=== PATIENT | female | born 1940 | race African-American/Black ===

== ENCOUNTER 2016-09-02 10:09 | Emergency (ER) | payer MEDICARE ==
[~2016-09-02] VITALS: Ht 167.6 cm; Wt 79.1 kg
[~2016-09-02 10:09] MED LIST: AMLO10TA2 PO; ASPI-621 PO; ASPI-650 PO; IRON SULFATE PO; LATA2.5D2 OP; LEVO100T5 PO; MECL-76 PO; ROSU20TA PO
[2016-09-02 11:47] LABS: PATH.CAST-FLAG NOT PRESENT; SPERM-FLAG NOT PRESENT; SRC-FLAG NOT PRESENT; XTAL-FLAG NOT PRESENT; YLC-FLAG NOT PRESENT
[2016-09-02 12:23] VITALS: BP 152/80
== END 2016-09-02 13:03 | disposition home or self-care (01) ==
LOC: ED 12:09
DX: N76.0 Acute vaginitis (principal); I10 Essential (primary) hypertension; Z79.82 Long term (current) use of aspirin
CPT/HCPCS: 81001; 87210; 87491; 87591; 87808; 99284

== ENCOUNTER 2016-10-01 09:46 | Emergency (ER) | payer MEDICARE | END 2016-10-01 10:14 | disposition left against medical advice (07) | LOC: ED 10:00 ==

== ENCOUNTER 2016-10-01 13:46 | Emergency (ER) | payer MEDICARE ==
[~2016-10-01] VITALS: Ht 167.6 cm; Wt 79.7 kg
[2016-10-01] MEDS ORDERED: KETOROLAC 30 MG/1 ML IVPush ONE (14:30)
[2016-10-01] MEDS ORDERED: SODIUM CHLORIDE 0.9% 1,000ML IVBOLUS ONE (14:30)
[2016-10-01] MEDS ORDERED: SODIUM CHLORIDE FLUSH 10ML SYR IVF ONE (14:30)
[2016-10-01] MEDS ORDERED: KETOROLAC 30 MG/1 ML ONE (14:46)
[2016-10-01 15:18] LABS: BLOOD UREA NITROGEN 20 mg/dL (7-18)
[2016-10-01 16:48] VITALS: BP 168/80
== END 2016-10-01 16:52 | disposition home or self-care (01) ==
LOC: ED 15:34
DX: R51 Headache (principal); E78.00 Pure hypercholesterolemia, unspecified; E03.9 Hypothyroidism, unspecified; I10 Essential (primary) hypertension
CPT/HCPCS: 36415; 70450; 80048; 82040; 85025; 85651; 96361; 96374; 99285; J1885; J7030

== ENCOUNTER 2016-10-04 14:19 | Emergency (ER) | payer MEDICARE ==
[~2016-10-04] VITALS: Ht 167.6 cm; Wt 78.8 kg
[2016-10-04 15:13] LABS: HEMATOCRIT 42.7 % (34.6-47.8); HEMOGLOBIN 13.5 g/dL (11.7-16.4); WHITE BLOOD COUNT 7.8 x10^3/uL (3.4-10)
[2016-10-04 15:24] LABS: BLOOD UREA NITROGEN 19 mg/dL (7-18)
[2016-10-04 15:28] LABS: ASPARTATE AMINO TRANSFERASE 18 U/L (15-37)
[2016-10-04] MEDS ORDERED: ASPI-496 PO (16:22)
[2016-10-04] MEDS ORDERED: LOSARTAN 25MG TABLET PO ONE (17:30)
[2016-10-04 17:41] VITALS: BP 174/87
== END 2016-10-04 17:43 | disposition home or self-care (01) ==
LOC: ED 17:34
DX: I10 Essential (primary) hypertension (principal); R51 Headache; E03.9 Hypothyroidism, unspecified; E78.00 Pure hypercholesterolemia, unspecified; Z90.89 Acquired absence of other organs; Z86.73 Personal history of transient ischemic attack (TIA), and cerebral infarction without residual deficits
CPT/HCPCS: 36415; 80053; 85025; 85651; 93005; 99285

== ENCOUNTER → 2017-03-23 | Outpatient (CLI) | payer MEDICARE ==
[~2017-03-23] MED LIST changes: +ASPI-496 PO
[2017-03-23 12:36] LABS: BASOPHILS # (AUTO) 0.03 x10^3/uL (0-0.1); BASOPHILS % (AUTO) 0 % (0-1); EOSINOPHILS # (AUTO) 0.17 x10^3/uL (0-0.4); EOSINOPHILS % (AUTO) 2 % (1-7); LYMPHOCYTES # (AUTO) 1.64 x10^3/uL (1-3.4); LYMPHOCYTES % (AUTO) 20 % (22-44); MD NO; MEAN CORPUSCULAR HEMOGLOBIN 23.6 pg (27.0-34.8); MEAN CORPUSCULAR HGB CONC 31.4 g/dL (32.4-35.8); MEAN CORPUSCULAR VOLUME 75.1 fL (80-100); MEAN PLATELET VOLUME 10.1 fL (7.4-10.4); MONOCYTES # (AUTO) 0.58 x10^3/uL (0.2-0.8); MONOCYTES % (AUTO) 7 % (2-9); NEUTROPHILS # (AUTO) 5.73 x10^3/uL (1.8-6.8); NEUTROPHILS % (AUTO) 70 % (42-75); PLATELET COUNT 256 x10^3/uL (130-400); RED BLOOD COUNT 5.95 x10^6/uL (3.82-5.3); RED CELL DISTRIBUTION WIDTH 17.7 % (9.6-15.2)
[2017-03-23 12:49] LABS: ANION GAP 8 mmol/L (5-15); CALCIUM 8.9 mg/dL (8.5-10.1); CHLORIDE 108 mmol/L (98-107)
[2017-03-23 13:17] LABS: CREATININE 1.17 mg/dL (0.55-1.02); FOLATE LEVEL 14.1 ng/mL (3.1-17.5)
== END | disposition home or self-care (01) ==
LOC: CFH 09:53
PROVIDERS: ATTEND Nurse Practitioner Family
DX: I12.9 Hypertensive chronic kidney disease with stage 1 through stage 4 chronic kidney disease, or unspecified chronic kidney disease (principal); N18.3 Chronic kidney disease, stage 3 (moderate); E03.9 Hypothyroidism, unspecified; E78.5 Hyperlipidemia, unspecified; R41.3 Other amnesia
CPT/HCPCS: 36415; 80048; 82607; 82746; 84439; 84443; 85025; 86592

== ENCOUNTER → 2017-04-13 | Outpatient (CLI) | payer MEDICARE ==
[2017-04-13 15:30] LABS: MICROSCOPIC NOT IND
[2017-04-13 15:40] LABS: BASOPHILS # (AUTO) 0.05 x10^3/uL (0-0.1); BASOPHILS % (AUTO) 1 % (0-1); EOSINOPHILS # (AUTO) 0.15 x10^3/uL (0-0.4); EOSINOPHILS % (AUTO) 2 % (1-7); LYMPHOCYTES # (AUTO) 2.09 x10^3/uL (1-3.4); LYMPHOCYTES % (AUTO) 23 % (22-44); MD NO; MEAN CORPUSCULAR HEMOGLOBIN 23.7 pg (27.0-34.8); MEAN CORPUSCULAR HGB CONC 32.1 g/dL (32.4-35.8); MEAN CORPUSCULAR VOLUME 73.9 fL (80-100); MEAN PLATELET VOLUME 10.2 fL (7.4-10.4); MONOCYTES % (AUTO) 5 % (2-9); NEUTROPHILS # (AUTO) 6.52 x10^3/uL (1.8-6.8); NEUTROPHILS % (AUTO) 70 % (42-75); PLATELET COUNT 262 x10^3/uL (130-400); RED BLOOD COUNT 5.85 x10^6/uL (3.82-5.3); RED CELL DISTRIBUTION WIDTH 16.9 % (9.6-15.2)
[2017-04-13 15:46] LABS: HEMOGLOBIN A1C 6.4 % (4.2-6.3)
[2017-04-13 15:58] LABS: ALBUMIN 3.6 g/dL (3.4-5.0); ANION GAP 7 mmol/L (5-15); CALCIUM 8.9 mg/dL (8.5-10.1); CHLORIDE 107 mmol/L (98-107); CREATININE 1.18 mg/dL (0.55-1.02)
[2017-04-13 16:24] LABS: FOLATE LEVEL 15.7 ng/mL (3.1-17.5)
== END | disposition home or self-care (01) ==
LOC: CFH 11:51
PROVIDERS: ATTEND Registered Nurse
DX: N18.3 Chronic kidney disease, stage 3 (moderate) (principal); R41.3 Other amnesia
CPT/HCPCS: 36415; 80069; 81003; 82175; 82525; 82607; 82746; 83036; 83655; 83825; 85025